=== PATIENT | female | born 1940 | race Caucasian/White ===

== ENCOUNTER → 2019-09-03 | Outpatient (CLI) | payer BC ==
[~2019-09-03] MED LIST: BACTRIM DS TAB1 EACH PO; CRESTOR10 MG; GLUCOPHAGE XR500 MG; LIPITOR20 MG PO; NORCO 5-325 TA1 EACH PO; ZESTORETIC
== END ==
LOC: SJCVC 11:26
PROVIDERS: ATTEND Internal Medicine Cardiovascular Disease
DX: R94.31 Abnormal electrocardiogram [ECG] [EKG] (principal); I20.8 Other forms of angina pectoris; I10 Essential (primary) hypertension; E78.00 Pure hypercholesterolemia, unspecified; E11.9 Type 2 diabetes mellitus without complications; M19.90 Unspecified osteoarthritis, unspecified site; E78.5 Hyperlipidemia, unspecified; Z79.82 Long term (current) use of aspirin; Z79.899 Other long term (current) drug therapy; Z87.891 Personal history of nicotine dependence

== ENCOUNTER → 2019-09-09 | Outpatient (CLI) | payer BC ==
--- NOTE | 2019-09-09 12:12 | 2DMMODE ---
[facility] [place] [address] 2 D/M-MODE ECHOCARDIOGRAM Name: ANAYA JIMENEZ Room #: REG [facility]#: [id number] Admission: 09/09/19 Attend Phys: Iggy De Luna MD Discharge: Date of : 40 Report #: [id number] THIS REPORT FOR: cc: Hugh Nur Steven F. DO Park, Jin S. MD ~ APPROVED REPORT Study performed: 09/09/2019 10:57:59 EXAM: Comprehensive 2D, Doppler, and color-flow Echocardiogram Patient Location: Out-Patient Status: routine BSA: 1.73 HR: 78 bpm BP: 139/87 mmHg Rhythm: Sinus arrhythmia/130s at times Indications Neck and chest pain. HTN. 2D Dimensions RVDd: 37.00 mm IVSd: 10.00 (7-11mm) LVOT Diam: 17.00 (18-24mm) LVDd: 43.00 mm PWd: 10.00 (7-11mm) Ascending Ao: 32.00 (22-36mm) LVDs: 27.00 (25-40mm) Aortic Root: 29.00 mm Volumes Left Atrial Volume (Systole) Single Plane 4CH: 53.72 mL Single Plane 2CH: 69.12 mL LA ESV Index: 37.00 mL/m2 Aortic Valve AoV Peak Alex.: 2.74 m/s AO Peak Gr.: 30.06 mmHg LVOT Max P.19 mmHg AO Mean Gr.: 14.34 mmHg AO V2 Mean: 1.77 m/s LVOT Max V: 1.75 m/s AO V2 VTI: 61.36 cm CRISS Vmax: 1.43 cm2 Mitral Valve [facility] [address] [address] 2 D/M-MODE ECHOCARDIOGRAM Name: ANAYA JIMENEZ Room #: REG [facility]#: [id number] Admission: 09/09/19 Attend Phys: Iggy De Luna MD Discharge: Date of : 40 Report #: [id number] E/A Ratio: 1.3 MV Decel. Time: 205.11 ms MV E Max Alex.: 1.19 m/s MV A Alex.: 0.93 m/s MV PHT: 59.48 ms IVRT: 62.28 ms Pulmonary Valve PV Peak Alex.: 1.39 m/s PV Peak Gr.: 7.69 mmHg Pulmonary Vein P Vein S: 0.89 m/s P Vein A: 0.41 m/s P Vein D: 0.70 m/s P Vein A Dur.: 124.6 msec P Vein S/D Ratio: 1.27 Tricuspid Valve TR Peak Alex.: 2.99 m/s RAP Estimate: 5.00 mmHg TR Peak Gr.: 36.00 mmHg PA Pressure: 41.00 mmHg Left Ventricle The left ventricle is normal size. There is normal LV segmental wall motion. There is normal left ventricular wall thickness. Left ventricular systolic function is normal. LVEF is 65%. Moderate diastolic dysfunction is present (pseudonormal filling). Right Ventricle The right ventricle is normal size. The right ventricular systolic function is normal. Atria Left atrium is mildly dilated. Right atrium is at the upper limits of normal. Aortic Valve Aortic valve is calcified. No aortic regurgitation is present. Mild aortic stenosis. (Peak pressure gradient of 30mmHg, mean of 14mmHg). Mitral Valve The mitral valve is normal in structure. Mild mitral annular calcification. Mild mitral regurgitation. No evidence of mitral valve stenosis. Tricuspid Valve The tricuspid valve is normal in structure. Mild to moderate [facility] [address] [place] [address] 2 D/M-MODE ECHOCARDIOGRAM Name: ANAYA JIMENEZ Room #: REG [facility]#: [id number] Admission: 09/09/19 Attend Phys: Iggy De Luna MD Discharge: Date of : 40 Report #: [id number] tricuspid regurgitation. Estimated PAP is 40mmHg. Pulmonic Valve The pulmonary valve is normal in structure. Mild pulmonic regurgitation. Great Vessels The aortic root is normal in size. The ascending aorta is normal in size. IVC is normal in size and collapses >50% with inspiration. Pericardium There is no pericardial effusion. <Conclusion> The left ventricle is normal size. Left ventricular systolic function is normal. Moderate diastolic dysfunction is present (pseudonormal filling). The right ventricle is normal size. Left atrium is mildly dilated. Mild aortic stenosis. (Peak pressure gradient of 30mmHg, mean of 14mmHg). Mild mitral regurgitation. Mild to moderate tricuspid regurgitation. Estimated PAP is 40mmHg. <ELECTRONICALLY SIGNED> By: Iggy De Luna MD 09/09/19 121 10 10 Iggy De Luna MD /INF
== END ==
LOC: CV 06:57
PROVIDERS: ATTEND Internal Medicine Cardiovascular Disease
DX: I08.8 Other rheumatic multiple valve diseases (principal); M54.2 Cervicalgia; I10 Essential (primary) hypertension; R07.9 Chest pain, unspecified

== ENCOUNTER → 2020-03-11 | Outpatient (CLI) | payer MEDICARE | LOC: SJCVC 10:27 | PROVIDERS: ATTEND Internal Medicine Cardiovascular Disease | DX: Z01.810 Encounter for preprocedural cardiovascular examination (principal); I10 Essential (primary) hypertension; E78.00 Pure hypercholesterolemia, unspecified; I38 Endocarditis, valve unspecified; R60.9 Edema, unspecified; E11.9 Type 2 diabetes mellitus without complications; E78.5 Hyperlipidemia, unspecified; Z79.82 Long term (current) use of aspirin; Z79.899 Other long term (current) drug therapy; Z87.891 Personal history of nicotine dependence ==

== ENCOUNTER → 2021-03-16 | Outpatient (CLI) | payer MEDICARE | LOC: SJCVC 10:56 | PROVIDERS: ATTEND Internal Medicine Cardiovascular Disease | DX: R94.31 Abnormal electrocardiogram [ECG] [EKG] (principal); R00.1 Bradycardia, unspecified; I10 Essential (primary) hypertension; E78.00 Pure hypercholesterolemia, unspecified; R60.9 Edema, unspecified; E11.9 Type 2 diabetes mellitus without complications; E78.5 Hyperlipidemia, unspecified; I38 Endocarditis, valve unspecified; Z79.82 Long term (current) use of aspirin; Z79.899 Other long term (current) drug therapy; Z87.891 Personal history of nicotine dependence ==